=== PATIENT | male | born 1970 | race Two or more races ===

== ENCOUNTER 2016-08-19 03:12 | Emergency (ER) | payer BC ==
--- NOTE | 2016-08-19 19:15 | ER ---
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 Denies any pain radiating to his back, fevers, chills, vomiting, diarrhea, or melena. Exam remarkable for nontoxic, afebrile, obese male, tender epigastrium to the umbilicus, no CVA tenderness. CT abdomen and pelvis negative. Normal CBC, CMP, CRP, lactic acid, lipase, and UA. Given a liter of fluid, Zofran, Toradol, Protonix, Dilaudid with relief of pain. Home with Protonix 40 mg daily #30. Follow up with [facility] this week. Horacio Maki MD/ shukri JOB #: [id number] CC: Horacio Maki MD, Attending Physician Braden Leiva MD, Family Physician
== END 2016-08-19 05:05 | disposition home or self-care (01) ==
LOC: ER 03:12
DX: R10.33 Periumbilical pain (principal); R10.13 Epigastric pain; E11.9 Type 2 diabetes mellitus without complications; E78.5 Hyperlipidemia, unspecified